=== PATIENT | male | born 1955 | race Caucasian/White ===

== ENCOUNTER 2022-03-20 10:49 | Emergency (ER) | payer BC ==
[~2022-03-20] VITALS: Ht 175.3 cm; Wt 90.0 kg
[2022-03-20 11:28] VITALS: BP 173/100
[2022-03-20 11:30] VITALS: BP 158/103
[2022-03-20 11:58] LABS: HEMATOCRIT 56.2 % (39.0-50.0); HEMOGLOBIN 19.9 g/dl (14.0-18.0); IMMATURE GRANULOCYTES 0.4 % (0.0-5.0); MEAN CELL VOLUME 101.4 fL CALC (80.0-100.0); MEAN CORPUSCULAR HGB 35.9 pG CALC (26.0-32.0); MEAN CORPUSCULAR HGB CONC 35.4 g/dL CAL (32.0-36.0); NEUT# 10.51 thou/uL (1.82-7.42); RED BLOOD COUNT 5.54 mill/uL (4.70-6.10)
[2022-03-20 13:05] VITALS: BP 130/91
[2022-03-20 13:15] VITALS: BP 134/83
[2022-03-20 13:31] VITALS: BP 145/99
[2022-03-20 13:48] LABS: ALKALINE PHOSPHATASE 58 u/l (38-126); ANION GAP 14 (6-22 (CALC)); BILIRUBIN, TOTAL 1.4 mg/dL (0.0-1.4); BUN 11 mg/dL (8-23); BUN/CREATININE RATIO 12 (12-20 (CALC)); CARBON DIOXIDE 26 mmol/l (22-30); CHLORIDE 102 mmol/l (95-108); CREATININE 0.9 mg/dL (0.7-1.3); GFR FOR AFR.AMER. > 60 ML/MIN (>=60 (CALC)); GFR OTHER RACES > 60 ML/MIN (>=60 (CALC)); POTASSIUM 4.5 mmol/l (3.5-5.1); SGOT/AST 39 u/l (19-48); SODIUM 136 mmol/l (137-146); TOTAL PROTEIN 7.4 g/dL (6.3-8.2)
[2022-03-20] MEDS ORDERED: PROAIR HFA IN (14:25)
[2022-03-20] MEDS ORDERED: PREDNISONE10 MG PO (14:25)
[2022-03-20] MEDS ORDERED: LEVAQUIN750 M1 PO (14:25)
[2022-03-20 14:35] VITALS: BP 145/99
== END 2022-03-20 14:30 | disposition home or self-care (01) | DRG 203 ==
LOC: ED 10:49
PROVIDERS: Emergency Medicine
DX: J20.9 Acute bronchitis, unspecified (principal); Z20.822 Contact with and (suspected) exposure to COVID-19